=== PATIENT | female | born 1960 | race Caucasian/White ===

== ENCOUNTER → 2016-09-23 | Outpatient (CLI) | payer OTHER ==
[2015-12-18 16:25] VITALS: BP 112/81
[~2016-09-23] MED LIST: AMLO5TAB2 PO; INTE0.3V2 SQ; LEVO125T5 PO; LOSA50TA6 PO; NEBI5TAB2 PO; SIMV10TA3 PO
[2016-09-23 07:51] LABS: ALBUMIN 3.8 g/dL (3.4-5.0); CALCIUM 9.2 mg/dL (8.5-10.1); CREATININE 0.9 mg/dL (0.6-1.0); GFR 64.5; POTASSIUM 4.1 mmol/L (3.5-5.1); TOTAL BILIRUBIN 0.7 mg/dL (0.2-1.0); TOTAL PROTEIN 7.6 g/dL (6.4-8.2)
[2016-09-24 03:15] LABS: HEMOGLOBIN A1C 5.6 % (4.8-5.6)
== END | disposition home or self-care (01) ==
LOC: LAB 07:12
PROVIDERS: ATTEND Family Medicine
DX: I10 Essential (primary) hypertension (principal)
CPT/HCPCS: 36415; 80053; 80061; 83036

== ENCOUNTER → 2016-10-05 | Outpatient (CLI) | payer OTHER ==
[2015-12-18 16:25] VITALS: BP 112/81
--- NOTE | 2016-10-05 12:02 | RAD ---
DATE: 10/05/2016 EXAM: MAMMO COOKIE SCREENING BILATERAL HISTORY: Screening COMPARISON: One year earlier This study was interpreted with the benefit of Computerized Aided Detection (CAD). FINDINGS: Breast Density: SCATTERED The breast parenchyma shows scattered fibroglandular densities. Breast parenchyma level B. There has not been a significant change in the appearance of the breasts compared to the previous exam IMPRESSION: Benign findings BI-RADS CATEGORY: 2 BENIGN FINDING(S) RECOMMENDED FOLLOW-UP: 12M 12 MONTH FOLLOW-UP PQRS compliance statement: Patient information was entered into a reminder system with a target due date 10/05/2017 for the next mammogram. Mammography is a sensitive method for finding small breast cancers, but it does not detect them all and is not a substitute for careful clinical examination. A negative mammogram does not negate a clinically suspicious finding and should not result in delay in biopsying a clinically suspicious abnormality. "Our facility is accredited by the [employer] Mammography [employer]."
== END | disposition home or self-care (01) ==
LOC: MAMMO 10:06
PROVIDERS: ATTEND Family Medicine
DX: Z12.31 Encounter for screening mammogram for malignant neoplasm of breast (principal)
CPT/HCPCS: 77063; G0202; 77067

== ENCOUNTER → 2016-12-01 | Outpatient (CLI) | payer OTHER ==
[2015-12-18 16:25] VITALS: BP 112/81
--- NOTE | 2016-12-01 11:30 | RAD ---
INDICATION: LEFT FOOT PAIN COMPARISON: None. IMPRESSION: Left foot: 3 views obtained without definite acute fracture or dislocation. Relative lucency of the tuft of the first distal phalanx laterally. Could be artifactual in nature but if there is any clinical concern for osteomyelitis a follow-up bone scan or MRI could further evaluate. Plantar calcaneal spur.
== END | disposition home or self-care (01) ==
LOC: DXRAD 11:10
PROVIDERS: ATTEND Nurse Practitioner Family
DX: M77.32 Calcaneal spur, left foot (principal)
CPT/HCPCS: 73630

== ENCOUNTER → 2017-03-08 | Outpatient (CLI) | payer OTHER ==
[2015-12-18 16:25] VITALS: BP 112/81
== END | disposition home or self-care (01) ==
LOC: LAB 09:50
PROVIDERS: ATTEND Family Medicine
DX: E03.9 Hypothyroidism, unspecified (principal)
CPT/HCPCS: 84443

== ENCOUNTER → 2017-04-25 | Outpatient (CLI) | payer OTHER ==
[2015-12-18 16:25] VITALS: BP 112/81
== END | disposition home or self-care (01) ==
LOC: LAB 07:25
PROVIDERS: ATTEND Physician Assistant
DX: R73.9 Hyperglycemia, unspecified (principal)
CPT/HCPCS: 36415; 82947

== ENCOUNTER → 2017-05-05 | Outpatient (CLI) | payer OTHER ==
[2015-12-18 16:25] VITALS: BP 112/81
[2017-05-05 18:38] LABS: ALBUMIN 3.9 g/dL (3.4-5.0); ALBUMIN/GLOBULIN RATIO 1.1 (1.0-1.7); CALCIUM 9.3 mg/dL (8.5-10.1); CREATININE 1.1 mg/dL (0.6-1.0); GFR 51.2; POTASSIUM 3.9 mmol/L (3.5-5.1); TOTAL BILIRUBIN 0.4 mg/dL (0.2-1.0); TOTAL PROTEIN 7.5 g/dL (6.4-8.2)
[2017-05-06 04:13] LABS: HEMOGLOBIN A1C 6.1 % (4.8-5.6)
== END | disposition home or self-care (01) ==
LOC: PMG 15:24
PROVIDERS: ATTEND Physician Assistant
DX: R73.02 Impaired glucose tolerance (oral) (principal)
CPT/HCPCS: 36415; 80053; 83036

== ENCOUNTER → 2017-12-21 | Outpatient (CLI) | payer OTHER ==
[2015-12-18 16:25] VITALS: BP 112/81
[2017-12-21 10:41] LABS: BASO # 0.1 x10^3/uL (0.0-0.2); BASO % 1 % (0-3); EOS # 0.3 x10^3/uL (0.0-0.7); EOS % 5 % (0-3); HEMATOCRIT 39.4 % (36.0-47.0); HEMOGLOBIN 13.2 g/dL (12.0-15.5); LYMPH % 16 % (24-48); MEAN CORPUSCULAR HEMOGLOBIN 28 pg (25-35); MEAN CORPUSCULAR HGB CONC 34 g/dL (31-37); MEAN CORPUSCULAR VOLUME 84 fL (79-100); MONO # 0.5 x10^3/uL (0.0-1.1); MONO % 8 % (0-9); NEUT # 4.2 x10^3uL (1.8-7.7); NEUT % 70 % (31-73); PLATELET COUNT 172 x10^3/uL (140-400)
[2017-12-21 10:49] LABS: BACTERIA,URINE 0 /HPF (0-FEW); BILIRUBIN,URINE NEG (NEG); CLARITY,URINE HAZY; COLOR,URINE YELLOW; GLUCOSE,URINE NEG (NEG); NITRITE,URINE NEG (NEG); RBC,URINE 0 /HPF (0-2); SQUAMOUS EPITHELIAL CELL,UR OCC /LPF; UROBILINOGEN,URINE 0.2 mg/dL (0.2 mg/dL); WBC,URINE RARE /HPF (0-4)
[2017-12-21 11:02] LABS: ALBUMIN 4.1 g/dL (3.4-5.0); ALBUMIN/GLOBULIN RATIO 1.2 (1.0-1.7); CALCIUM 9.5 mg/dL (8.5-10.1); CREATININE 0.9 mg/dL (0.6-1.0); GFR 64.3; POTASSIUM 4.4 mmol/L (3.5-5.1); TOTAL BILIRUBIN 0.6 mg/dL (0.2-1.0); TOTAL PROTEIN 7.5 g/dL (6.4-8.2)
[2017-12-21 14:21] LABS: FREE T4 1.31 ng/dL (0.76-1.46); THYROID STIM HORMONE (TSH) 1.767 uIU/mL (0.358-3.740)
[2017-12-22 03:12] LABS: HEMOGLOBIN A1C 5.7 % (4.8-5.6)
== END | disposition home or self-care (01) ==
LOC: LAB 09:12
PROVIDERS: ATTEND Physician Assistant
DX: I10 Essential (primary) hypertension (principal); E78.5 Hyperlipidemia, unspecified; E78.00 Pure hypercholesterolemia, unspecified; E03.9 Hypothyroidism, unspecified; Z90.49 Acquired absence of other specified parts of digestive tract; Z90.89 Acquired absence of other organs; Z90.710 Acquired absence of both cervix and uterus
CPT/HCPCS: 36415; 80053; 80061; 81001; 82043; 83036; 84439; 84443; 85025; 87086

== ENCOUNTER → 2018-07-13 | Outpatient (CLI) | payer OTHER ==
[2015-12-18 16:25] VITALS: BP 112/81
[~2018-07-13] MED LIST changes: +AMLO5TAB10 PO; -AMLO5TAB2 PO; -LOSA50TA6 PO; +LOSA50TA86 PO
--- NOTE | 2018-07-13 12:57 | RAD ---
EXAM: Abdomen, 2 views. HISTORY: Pain. COMPARISON: 12/17/2015 FINDINGS: Frontal upright and supine views of the abdomen are obtained. There is a small amount of gas and stool within the colon. There are nonspecific air-filled loops of small bowel. There is no abnormally dilated loop of bowel, transition point or free air. There are calcifications overlying the left upper quadrant which are likely vascular in etiology. IMPRESSION: Nonobstructive bowel gas pattern. Electronically signed by: Rica Nettles MD (07/13/2018 12:53 PM) [place] [id number]
[2018-07-13 13:00] LABS: BASO # 0.1 x10^3/uL (0.0-0.2); BASO % 1 % (0-3); EOS # 0.5 x10^3/uL (0.0-0.7); EOS % 5 % (0-3); HEMATOCRIT 37.5 % (36.0-47.0); HEMOGLOBIN 12.8 g/dL (12.0-15.5); LYMPH # 1.4 x10^3/uL (1.0-4.8); LYMPH % 14 % (24-48); MEAN CORPUSCULAR HEMOGLOBIN 29 pg (25-35); MEAN CORPUSCULAR HGB CONC 34 g/dL (31-37); MEAN CORPUSCULAR VOLUME 85 fL (79-100); MONO # 0.7 x10^3/uL (0.0-1.1); MONO % 8 % (0-9); NEUT # 7.2 x10^3uL (1.8-7.7); NEUT % 73 % (31-73); PLATELET COUNT 175 x10^3/uL (140-400); RED CELL DISTRIBUTION WIDTH 14.6 % (11.5-14.5); WHITE BLOOD COUNT 9.8 x10^3/uL (4.0-11.0)
[2018-07-13 13:07] LABS: ALBUMIN/GLOBULIN RATIO 1.1 (1.0-1.7); CALCIUM 9.4 mg/dL (8.5-10.1); GFR 56.7; POTASSIUM 4.2 mmol/L (3.5-5.1); TOTAL BILIRUBIN 0.8 mg/dL (0.2-1.0); TOTAL PROTEIN 7.7 g/dL (6.4-8.2)
[2018-07-13 13:17] LABS: BILIRUBIN,URINE NEG (NEG); CLARITY,URINE HAZY; COLOR,URINE YELLOW; GLUCOSE,URINE NEG (NEG); NITRITE,URINE NEG (NEG); RBC,URINE 0 /HPF (0-2); UROBILINOGEN,URINE 0.2 mg/dL (0.2 mg/dL); WBC,URINE OCC /HPF (0-4)
[2018-07-13 13:18] LABS: BACTERIA,URINE 0 /HPF (0-FEW); SQUAMOUS EPITHELIAL CELL,UR FEW /LPF
[2018-07-13 14:14] LABS: SEDIMENTATION RATE 33 (0-25)
== END | disposition home or self-care (01) ==
LOC: DXRAD 12:18
PROVIDERS: ATTEND Physician Assistant
DX: R10.30 Lower abdominal pain, unspecified (principal)
CPT/HCPCS: 36415; 74021; 80053; 81001; 82150; 83690; 85025; 85651

== ENCOUNTER → 2019-04-09 | Outpatient (CLI) | payer OTHER ==
[2015-12-18 16:25] VITALS: BP 112/81
[~2019-04-09] MED LIST changes: +SIMV10TA15 PO; -SIMV10TA3 PO
--- NOTE | 2019-04-11 17:55 | RAD ---
3d digital tomography Bilateral History: Routine screening Technique: Bilateral 3d digital tomographic views were obtained and reviewed on a workstation. In addition, CAD - computer aided detection was utilized. Comparison: Most recently on 10/05/2016. Findings: Breast Tissue Density B : The breast tissue is composed of mixed fatty and fibroglandular tissue. There are no suspicious masses, microcalcifications or areas of architectural distortion. Impression: No suspicious findings. BI-RADS Category 1: Negative. Normal interval followup. The patient will receive a letter with the results in the mail. A mammogram does not have 100% sensitivity and therefore a negative imaging study should not delay further work up of a suspicious abnormality. "Our facility is accredited by the [employer] Mammography [employer]."
== END | disposition home or self-care (01) ==
LOC: MAMMO 15:01
PROVIDERS: ATTEND Physician Assistant
DX: Z12.31 Encounter for screening mammogram for malignant neoplasm of breast (principal)
CPT/HCPCS: 77063; 77067

== ENCOUNTER → 2019-11-14 | Outpatient (CLI) | payer OTHER ==
[2015-12-18 16:25] VITALS: BP 112/81
[2019-11-14 16:35] LABS: BASO % 1 % (0-3); EOS # 0.2 x10^3/uL (0.0-0.7); EOS % 4 % (0-3); HEMATOCRIT 40.1 % (36.0-47.0); HEMOGLOBIN 13.3 g/dL (12.0-15.5); LYMPH # 1.3 x10^3/uL (1.0-4.8); LYMPH % 22 % (24-48); MEAN CORPUSCULAR HEMOGLOBIN 29 pg (25-35); MEAN CORPUSCULAR HGB CONC 33 g/dL (31-37); MEAN CORPUSCULAR VOLUME 87 fL (79-100); MONO # 0.4 x10^3/uL (0.0-1.1); MONO % 7 % (0-9); NEUT % 66 % (31-73); PLATELET COUNT 161 x10^3/uL (140-400); RED BLOOD COUNT 4.62 x10^6/uL (3.50-5.40); RED CELL DISTRIBUTION WIDTH 14.6 % (11.5-14.5); WHITE BLOOD COUNT 6.1 x10^3/uL (4.0-11.0)
[2019-11-14 16:40] LABS: ALBUMIN 3.9 g/dL (3.4-5.0); ALBUMIN/GLOBULIN RATIO 1.1 (1.0-1.7); CALCIUM 9.3 mg/dL (8.5-10.1); CREATININE 1.2 mg/dL (0.6-1.0); GFR 45.8; POTASSIUM 4.3 mmol/L (3.5-5.1); TOTAL BILIRUBIN 0.4 mg/dL (0.2-1.0); TOTAL PROTEIN 7.5 g/dL (6.4-8.2)
[2019-11-15 14:49] LABS: FREE T4 1.4 ng/dL (0.76-1.46); THYROID STIM HORMONE (TSH) 0.869 uIU/mL (0.358-3.740)
== END ==
LOC: LAB 14:24
PROVIDERS: ATTEND Physician Assistant
DX: Z00.00 Encounter for general adult medical examination without abnormal findings (principal); R73.02 Impaired glucose tolerance (oral); G35 Multiple sclerosis; I10 Essential (primary) hypertension; E78.5 Hyperlipidemia, unspecified
CPT/HCPCS: 36415; 80053; 80061; 83036; 84439; 84443; 85025

== ENCOUNTER → 2020-04-14 | Outpatient (CLI) | payer OTHER ==
[2015-12-18 16:25] VITALS: BP 112/81
[~2020-04-14] MED LIST changes: +AMLO-186 PO; -AMLO5TAB10 PO
--- NOTE | 2020-04-16 16:53 | RAD ---
DATE: 04/14/2020 1:03 PM EXAM: MAMMO COOKIE SCREENING BILATERAL HISTORY: Screening COMPARISON: 04/09/2019 Bilateral CC and MLO views of the breasts were performed. Bilateral breast tomosynthesis was performed in CC and MLO projections. This study was interpreted with the benefit of Computerized Aided Detection (CAD). FINDINGS: Breast Density: SCATTERED The breast parenchyma shows scattered fibroglandular densities. Breast parenchyma level B No suspicious masses, microcalcifications or architectural distortion is present to suggest malignancy in either breast. The visualized axillae are unremarkable. IMPRESSION: No mammographic evidence of malignancy. BI-RADS CATEGORY: 1 NEGATIVE RECOMMENDED FOLLOW-UP: 12M 12 MONTH FOLLOW-UP Annual screening mammography is recommended, unless clinically indicated sooner based on symptoms or change in physical exam. PQRS compliance statement: Patient information was entered into a reminder system with a target due date for the next mammogram. Mammography is a sensitive method for finding small breast cancers, but it does not detect them all and is not a substitute for careful clinical examination. A negative mammogram does not negate a clinically suspicious finding and should not result in delay in biopsying a clinically suspicious abnormality. "Our facility is accredited by the [employer] Mammography [employer]."
== END ==
LOC: MAMMO 12:57
PROVIDERS: ATTEND Physician Assistant
DX: Z12.31 Encounter for screening mammogram for malignant neoplasm of breast (principal)
CPT/HCPCS: 77063; 77067

== ENCOUNTER 2020-04-26 21:44 | Emergency (ER) | payer OTHER ==
[~2020-04-26] VITALS: Ht 165.1 cm; Wt 82.3 kg
[2020-04-26 22:00] VITALS: BP 163/64
--- NOTE | 2020-04-26 22:22 | PHYS DOC ---
Past History Past Medical History: Diverticulitis, High Cholesterol, Hypertension Past Surgical History: Appendectomy, Hysterectomy, Tonsillectomy, Tubal ligation Alcohol Use: Occasionally Drug Use: None General Adult EDM: Chief Complaint: HYPERGLYCEMIA HPI: HPI: Patient is a 59-year-old female coming in for hyperglycemia. Patient states she checked her blood sugar this evening because she felt "off". Complaining of dizziness and jitteriness. Patient states she has been more thirsty recently and urinating more frequently. Patient has a primary care provider and is being treated for hypertension, hypothyroid, dyslipidemia. Patient states that she gets yearly screenings and has not had diabetes diagnosed in the past. Patient denies any fevers, cough, headaches. Patient states she has been under more stress and anxious recently after her committed suicide 1 month ago in her house. Patient denies any suicidal thoughts herself. Review of Systems: Review of Systems: Constitutional: Denies fever or chills Eyes: Denies change in visual acuity HENT: Denies nasal congestion or sore throat Respiratory: Denies cough or shortness of breath Cardiovascular: Denies chest pain or edema GI: Denies abdominal pain, nausea, vomiting, bloody stools or diarrhea : Denies dysuria Musculoskeletal: Denies back pain or joint pain Integument: Denies rash Neurologic: Dizziness without headache, focal weakness or sensory changes Endocrine: Polyuria and polydipsia Lymphatic: Denies swollen glands Psychiatric: Anxious and sad but denies suicidal ideation Allergies: Allergies: Allergies Coded Allergies Type Severity Reaction Last Updated Verified Penicillins Allergy Intermediate rash 12/17/15 Yes Physical Exam: PE: Constitutional: Well developed, well nourished, no acute distress, non-toxic appearance. [] HENT: Normocephalic, atraumatic, bilateral external ears normal, oropharynx mois t, no oral exudates, nose normal. [] Eyes: PERRLA, EOMI, conjunctiva normal, no discharge. [] Neck: Normal range of motion, no tenderness, supple, no stridor. [] Cardiovascular:Heart rate regular rhythm, no murmur [] Lungs & Thorax: Bilateral breath sounds clear to auscultation [] Abdomen: Bowel sounds normal, soft, no tenderness, no masses, no pulsatile masses. [] Skin: Warm, dry, no erythema, no rash. [] Back: No tenderness, no CVA tenderness. [] Extremities: No tenderness, no cyanosis, no clubbing, ROM intact, no edema. [] Neurologic: Alert and oriented X 3, normal motor function, normal sensory function, no focal deficits noted. [] Psychologic: Affect normal, judgement normal, mood normal. [] EKG: EKG: Sinus rhythm, heart rate 57 bpm, short axis deviation, no ST elevation or depression, no ectopy, normal intervals, T wave flattening in multiple leads Radiology/Procedures: Radiology/Procedures: [] Heart Score: Risk Factors: Risk Factors: DM, Current or recent (<one month) smoker, HTN, HLP, family history of CAD, obesity. Risk Scores: Score 0 - 3: 2.5% MACE over next 6 weeks - Discharge Home Score 4 - 6: 20.3% MACE over next 6 weeks - Admit for Clinical Observation Score 7 - 10: 72.7% MACE over next 6 weeks - Early Invasive Strategies Course & Med Decision Making: Course & Med Decision Making New onset of hyperglycemia, will start on Metformin instructed to start a low- dose and follow-up with primary care for further management of diabetes [] Dragon Disclaimer: Dragon Disclaimer: This electronic medical record was generated, in whole or in part, using a voice recognition dictation system. Departure Departure: Impression: Primary Impression: Diabetes mellitus, new onset Disposition: 01 DC HOME SELF CARE/HOMELESS Condition: IMPROVED Referrals: BRAXTON MCDANIEL (PCP) Patient Instructions: Alogliptin; Metformin oral tablets Scripts Metformin Hcl (METFORMIN HCL) 500 Mg Tablet 1 TAB PO DAILY for diabetes for 30 Days, #30 TAB 3 Refills Prov: LINH GRIGSBY MD 04/27/20 LINH GRIGSBY MD Apr 26, 2020 22:22
[2020-04-26 22:42] LABS: BACTERIA,URINE 0 /HPF (0-FEW); BILIRUBIN,URINE NEG (NEG); CLARITY,URINE CLEAR; COLOR,URINE YELLOW; GLUCOSE,URINE >=1000 mg/dL (NEG); NITRITE,URINE NEG (NEG); RBC,URINE 0 /HPF (0-2); UROBILINOGEN,URINE 0.2 mg/dL (0.2 mg/dL); WBC,URINE 0 /HPF (0-4)
--- NOTE | 2020-04-26 22:56 | EKG ---
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
[2020-04-26] MEDS ORDERED: IV NORMAL SALINE 500ML 500 ML IV ONE (23:30)
[2020-04-26 23:38] LABS: CREATININE 1.2 mg/dL (0.6-1.0); GFR 45.8; POTASSIUM 3.3 mmol/L (3.5-5.1)
[2020-04-26 23:39] LABS: BASO % 1 % (0-3); EOS # 0.1 x10^3/uL (0.0-0.7); EOS % 3 % (0-3); HEMATOCRIT 34.1 % (36.0-47.0); HEMOGLOBIN 11.5 g/dL (12.0-15.5); LYMPH # 1.3 x10^3/uL (1.0-4.8); LYMPH % 22 % (24-48); MEAN CORPUSCULAR HEMOGLOBIN 29 pg (25-35); MEAN CORPUSCULAR HGB CONC 34 g/dL (31-37); MEAN CORPUSCULAR VOLUME 85 fL (79-100); MONO # 0.5 x10^3/uL (0.0-1.1); MONO % 9 % (0-9); NEUT # 3.8 x10^3uL (1.8-7.7); NEUT % 66 % (31-73); PLATELET COUNT 113 x10^3/uL (140-400); RED BLOOD COUNT 4.03 x10^6/uL (3.50-5.40); RED CELL DISTRIBUTION WIDTH 14.8 % (11.5-14.5); WHITE BLOOD COUNT 5.8 x10^3/uL (4.0-11.0)
[2020-04-26 23:44] LABS: ALBUMIN 3.2 g/dL (3.4-5.0); TOTAL BILIRUBIN 0.5 mg/dL (0.2-1.0); TOTAL PROTEIN 6.5 g/dL (6.4-8.2)
[2020-04-27] MEDS ORDERED: METF500T16 PO (00:44)
== END 2020-04-27 01:00 | disposition home or self-care (01) ==
LOC: ER 21:44
DX: E11.65 Type 2 diabetes mellitus with hyperglycemia (principal); E78.00 Pure hypercholesterolemia, unspecified; I10 Essential (primary) hypertension; E03.9 Hypothyroidism, unspecified; E78.5 Hyperlipidemia, unspecified; Z88.0 Allergy status to penicillin
CPT/HCPCS: 36415; 80053; 81001; 83690; 84484; 85025; 93005; 96360; 99284; J7040

== ENCOUNTER 2020-08-12 20:50 | Inpatient (IN) | payer BC, OTHER ==
[~2020-08-12] VITALS: Ht 167.6 cm; Wt 70.2 kg
[~2020-08-12 20:50] MED LIST changes: +METF500T16 PO
--- NOTE | 2020-08-12 21:25 | PHYS DOC ---
Past History Past Medical History: Diverticulitis, High Cholesterol, Hypertension, Other Additional Past Medical Histor: MS Past Surgical History: Appendectomy, Hysterectomy, Tonsillectomy, Tubal ligation Alcohol Use: Occasionally Drug Use: None General Adult EDM: Chief Complaint: LOWER EXT PAIN HPI: HPI: Patient is a 60-year-old female coming in for bilateral inner and anterior thigh tenderness and weakness. Patient states she has been going on for the past 2 days and she is unable to get up and down stairs. Has an appointment with her neurologist tomorrow morning. Has a history of MS and in remission but has missed her last 3 months of medication. Patient also has been having diarrhea over the past 3 days which did initially started out dark and tarry looking but is now normal colored. Denies any vomiting. Daughter states she is also had decreased p.o. intake. Patient has a history of newly diagnosed diabetes has been checking her blood sugars but has been unable to get any blood out of her fingersticks for the past 4 to 5 days. Patient has had increased urination but denies any change in color or dysuria. She had a fall five or 6 days ago while she was trying to walk off a step and missed and fell onto both hands, and hit her chest, pelvis. Also complaining of tailbone and low back pain. Denies any paresthesias or calf pain. Review of Systems: Review of Systems: All other systems within normal limits except for as noted in the HPI Allergies: Allergies: Allergies Coded Allergies Type Severity Reaction Last Updated Verified Penicillins Allergy Intermediate rash 12/17/15 Yes Physical Exam: PE: Constitutional: Well developed, well nourished, no acute distress, non-toxic appearance. [] HENT: Normocephalic, atraumatic, bilateral external ears normal, nose normal. [] Eyes: PERRLA, conjunctiva normal, no discharge. [] Neck: No rigidity, supple, no stridor. No C-spine tenderness [] Cardiovascular: Regular rate and rhythm, brisk cap refill, symmetric pulses [] Lungs & Thorax: Non labored symmetric respirations, no tachypnea or respiratory distress [] Abdomen: Soft, nondistended, right upper quadrant tenderness to palpation. Skin: Warm, dry, no erythema, no rash. [] Back: No step-offs or deformities, lumbar tenderness Extremities: No deformities, range of motion grossly intact, no lower extremity edema [] Neurologic: Alert and oriented X 3, no focal deficits noted. Bilateral lower extremity strength 4-10 [] Psychologic: Affect normal, judgement normal, mood normal. No sensory deficits [] Current Patient Data: Vital Signs: Vital Signs Date Time Temp Pulse Resp B/P (MAP) Pulse Ox O2 Delivery O2 Flow Rate FiO2 08/12/20 20:50 97.9 56 18 144/64 (90) 100 Room Air EKG: EKG: Sinus rhythm, heart rate 60 beats minute, left axis deviation, flattening of the T waves, prolonged QTC, no ectopy, no ST elevation or depression. [] Radiology/Procedures: Radiology/Procedures: CT abdomen pelvis with contrast dated 08/12/2020. No comparison available. CLINICAL INDICATION: Pain for fall. Right upper quadrant pain. TECHNIQUE: Contiguous axial imaging the abdomen pelvis performed after the administration of 60 cc Omnipaque 300. One or more of the following individualized dose reduction techniques were utili zed for this examination: 1. Automated exposure control 2. Adjustment of the mA and/or kV according to patient size 3. Use of iterative reconstruction technique. FINDINGS: Limited images of lung bases are clear. Heart size within normal limits. No pleural or pericardial effusion. Liver, spleen, pancreas, adrenal glands, gallbladder unremarkable. There is a calcific stone the gallbladder lumen. No wall thickening. Kidneys are symmetric in size. No stone or hydronephrosis. There is some inflammatory stranding around the descending colon with scattered diverticula throughout. No localized perforation or abscess. The GI tract is otherwise normal in caliber. Appendix is not clearly identified. No inflammatory changes in the right lower quadrant. There is a pelvis show nondistended urinary bladder. The uterus is surgically absent. No free fluid or lymphadenopathy. Bone windows show no acute findings. Multilevel spondylosis. Impression: 1. Acute diverticulitis involving the descending colon. No localized perforation or abscess. 2. Mild fatty infiltration of the liver. 3. Cholelithiasis. [] Heart Score: C/O Chest Pain: N/A Risk Factors: Risk Factors: DM, Current or recent (<one month) smoker, HTN, HLP, family history of CAD, obesity. Risk Scores: Score 0 - 3: 2.5% MACE over next 6 weeks - Discharge Home Score 4 - 6: 20.3% MACE over next 6 weeks - Admit for Clinical Observation Score 7 - 10: 72.7% MACE over next 6 weeks - Early Invasive Strategies Course & Med Decision Making: Course & Med Decision Making Pertinent Labs and Imaging studies reviewed. (See chart for details) Patient admitted to the hospital. Has findings of acute diverticulitis, decreased potassium, prolonged QT interval. Patient states she has not seen Dr. Escobar for her MS medications and has an appointment tomorrow. Discussed with hospitalist that may need neuro consult to get her back on her medications. This likely due to the diverticulitis is causing diarrhea which is in turn causing hypokalemia. [] Dragon Disclaimer: Dragon Disclaimer: This electronic medical record was generated, in whole or in part, using a voice recognition dictation system. Departure Departure: Impression: Primary Impression: Acute diverticulitis Additional Impressions: Hypokalemia Prolonged Q-T interval on ECG Muscle spasms of both lower extremities Disposition: ADMITTED INPT THIS HOSP Admitting Physician: Jamilah Rosales Condition: STABLE Referrals: BRAXTON MCDANIEL (PCP) LINH GRIGSBY MD Aug 12, 2020 21:25
[2020-08-12] MEDS ORDERED: CONTRAST GIVEN. MC PRN (21:30)
[2020-08-12 22:00] LABS: BASO # 0.1 x10^3/uL (0.0-0.2); BASO % 1 % (0-3); EOS # 0.3 x10^3/uL (0.0-0.7); EOS % 2 % (0-3); HEMATOCRIT 40.3 % (36.0-47.0); HEMOGLOBIN 13.4 g/dL (12.0-15.5); LYMPH # 1.6 x10^3/uL (1.0-4.8); LYMPH % 11 % (24-48); MEAN CORPUSCULAR HEMOGLOBIN 30 pg (25-35); MEAN CORPUSCULAR HGB CONC 33 g/dL (31-37); MEAN CORPUSCULAR VOLUME 89 fL (79-100); MONO # 0.7 x10^3/uL (0.0-1.1); MONO % 5 % (0-9); NEUT # 12.3 x10^3uL (1.8-7.7); NEUT % 82 % (31-73); PLATELET COUNT 190 x10^3/uL (140-400); RED BLOOD COUNT 4.53 x10^6/uL (3.50-5.40); RED CELL DISTRIBUTION WIDTH 16.2 % (11.5-14.5)
[2020-08-12] MEDS ORDERED: IV NORMAL SALINE 1,000ML 1,000 ML IV ONE (22:00)
[2020-08-12] MEDS ORDERED: IOHEXOL 300 MG/ML 75 ML VIAL. IV ONE (22:00)
[2020-08-12 22:09] LABS: BACTERIA,URINE 0 /HPF (0-FEW); BILIRUBIN,URINE NEG (NEG); CLARITY,URINE CLEAR; COLOR,URINE YELLOW; GLUCOSE,URINE 500 mg/dL (NEG); NITRITE,URINE NEG (NEG); RBC,URINE OCC /HPF (0-2); SQUAMOUS EPITHELIAL CELL,UR FEW /LPF; WBC,URINE OCC /HPF (0-4)
[2020-08-12 22:24] LABS: ALBUMIN 3.8 g/dL (3.4-5.0); ALBUMIN/GLOBULIN RATIO 0.9 (1.0-1.7); CALCIUM 9.6 mg/dL (8.5-10.1); CREATININE 1.3 mg/dL (0.6-1.0); GFR 41.6; MAGNESIUM 2.8 mg/dL (1.8-2.4); PHOSPHORUS 0.9 mg/dL (2.6-4.7); TOTAL BILIRUBIN 0.9 mg/dL (0.2-1.0); TOTAL PROTEIN 8.1 g/dL (6.4-8.2)
[2020-08-12 22:27] LABS: POTASSIUM 1.5 mmol/L (3.5-5.1)
[2020-08-12] MEDS ORDERED: POTASSIUM CHLORIDE 20MEQ 100 ML IV SCH (22:30)
[2020-08-12] MEDS: POTASSIUM CHLORIDE 10MEQ 100 ML IV SCH (22:48)
--- NOTE | 2020-08-12 22:55 | RAD ---
CT abdomen pelvis with contrast dated 08/12/2020. No comparison available. CLINICAL INDICATION: Pain for fall. Right upper quadrant pain. TECHNIQUE: Contiguous axial imaging the abdomen pelvis performed after the administration of 60 cc Omnipaque 300 . One or more of the following individualized dose reduction techniques were utilized for this examinat ion: 1. Automated exposure control 2. Adjustment of the mA and/or kV according to patient size 3. Use of iterative reconstruction technique. FINDINGS: Limited images of lung bases are clear. Heart size within normal limits. No pleural or pericardial ef fusion. Liver, spleen, pancreas, adrenal glands, gallbladder unremarkable. There is a calcific stone the gall bladder lumen. No wall thickening. Kidneys are symmetric in size. No stone or hydronephrosis. There is some inflammatory stranding around the descending colon with scattered diverticula throughou t. No localized perforation or abscess. The GI tract is otherwise normal in caliber. Appendix is not clearly identified. No inflammatory changes in the right lower quadrant. There is a pelvis show nondistended urinary bladder. The uterus is surgically absent. No free fluid o r lymphadenopathy. Bone windows show no acute findings. Multilevel spondylosis. Impression: 1. Acute diverticulitis involving the descending colon. No localized perforation or abscess. 2. Mild fatty infiltration of the liver. 3. Cholelithiasis. Electronically signed by: Anselmo Chaudhary MD (08/12/2020 10:53 PM) [facility]
[2020-08-12] MEDS ORDERED: POTASSIUM CHLORIDE 20 MEQ TABLET.ER. PO ONE (23:00)
--- NOTE | 2020-08-12 23:17 | EKG ---
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
[2020-08-12] MEDS ORDERED: CIPROFLOXACIN 400MG PREMIX 200 ML IV ONE (23:45)
[2020-08-13] MEDS ORDERED: IV NORMAL SALINE 1,000ML 1,000 ML IV SCH (01:00)
[2020-08-13 02:29] VITALS: BP 154/72
[2020-08-13] MEDS: POTASSIUM CHLORIDE 10MEQ 100 ML IV SCH ×3 (03:48→05:06)
[2020-08-13] MEDS ORDERED: FLU VACC QS 2020-21(6MOS+)/PF 0.5 ML SYRINGE. VAX IM ONE (09:00)
[2020-08-13] MEDS ORDERED: MAGNESIUM SULFATE 1GM 100 ML IV ONE (09:15)
[2020-08-13 09:19] LABS: ALBUMIN 3.2 g/dL (3.4-5.0); ALBUMIN/GLOBULIN RATIO 0.8 (1.0-1.7); CALCIUM 8.9 mg/dL (8.5-10.1); GFR 56.4; TOTAL BILIRUBIN 0.9 mg/dL (0.2-1.0); TOTAL PROTEIN 7.1 g/dL (6.4-8.2)
[2020-08-13 10:07] LABS: POTASSIUM 1.8 mmol/L (3.5-5.1)
--- NOTE | 2020-08-13 10:08 | HP ---
ADMIT DATE: 08/13/2020 ATTENDING PHYSICIAN: Dr. Richey. CHIEF COMPLAINT: Abdominal pain and thigh weakness. HISTORY OF PRESENT ILLNESS: The patient is a 60-year-old female, recently retired. She has a longstanding history of MS. She presented to the ED with anterior thigh weakness. She also had abdominal pain. The workup revealed evidence of acute diverticulitis on the CT scan. She was started on antibiotics. She normally sees Dr. Rambo Ribera for the last 18 years. She missed her last 3 months of medication. She may have a flare of her MS. She is going to wait until to see him as an outpatient. She is admitted here for treatment of acute diverticulitis. The pain is discomfort. It is noticeable. No nausea or vomiting. She has decreased appetite. She was started on intravenous antibiotics. PAST MEDICAL HISTORY: Significant for multiple sclerosis, longstanding for the last 18 years. PAST SURGICAL HISTORY: Includes appendectomy, hysterectomy, tonsillectomy, and tubal ligation. Medical issues include high cholesterol and hypertension. CURRENT MEDICINES: Reviewed. She was taking amlodipine, Betaseron daily, Synthroid, losartan, metformin, Bystolic, and Zocor. ALLERGIES: SHE HAS ALLERGIES TO PENICILLIN. SOCIAL HISTORY: She is a nonsmoker, nondrinker. FAMILY HISTORY: Father has . She was not aware of his history. Mom is still alive at age 88. 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 REVIEW OF SYSTEMS: Significant for the localized pain. She has been followed up by the neurologist, the MS that has been quiescent. No COVID exposure. All other systems were reviewed and turned to be negative. PHYSICAL EXAMINATION: GENERAL: When I saw her, this is a pleasant, middle-aged female. INITIAL VITAL SIGNS: Showed blood pressure 133/57 mmHg, pulse is 61 and regular, temperature 98.3 degrees Fahrenheit, oxygen saturation 97% on room air. HEENT: Head is without trauma. Pupils are reactive. Sclerae nonicteric. Oropharynx is clear. NECK: Supple, no bruits identified. LUNGS: Otherwise clear. CARDIOVASCULAR: Showed regular heart tones. No gallops. ABDOMEN: Soft. Minimal guarding. Bowel sounds are hypoactive. No masses palpated. EXTREMITIES: Without edema. NEUROLOGIC: Focally intact. Speech is fluent. SKIN: Warm and dry. PERTINENT IMAGING STUDIES: The CT of the abdomen and pelvis showed acute diverticulitis involving the descending colon. No localized perforation or abscess. Fatty infiltration of the liver, some cholelithiasis without obstruction. LABORATORY STUDIES: Hemoglobin is 13.4 g/dL with white count of 15,000. Potassium was diminished at 1.5 mEq per liter, I am not sure how accurate that is. Sodium 143. Nonfasting blood sugar 307. Creatinine is 1.3. ASSESSMENT: 1. A 60-year-old female with acute diverticulitis. 2. Questionable hypokalemia. 3. Acute diverticulitis. 4. Multiple sclerosis. 5. Type 2 diabetes. PLAN: 1. Admit to the inpatient unit. 2. Potassium and magnesium replacement. I see she is not on a diuretic. 3. Serial chemistries. 4. Diet as tolerated. 5. She will wait to see her neurologist as an outpatient for management of her MS at this time. VICKY RICHEY MD DR: DEVIN/jailyn JOB#: [id number] / [id number] BRAXTON Jalloh
[2020-08-13 10:38] VITALS: BP 141/82
[2020-08-13] MEDS: POTASSIUM CHLORIDE 20 MEQ TABLET.ER. PO SCH ×2 (10:57→20:11)
[2020-08-13] MEDS: ACETAMINOPHEN 325 MG TABLET PO PRN ×2 (11:35→20:11)
[2020-08-13 15:42] VITALS: BP 146/70
[2020-08-13] MEDS ORDERED: TRAZ-125 PO (17:04)
[2020-08-13] MEDS ORDERED: DAPA10TA PO (17:04)
[2020-08-13] MEDS ORDERED: METF500T16 PO (17:04)
[2020-08-13] MEDS ORDERED: CITA10TA8 PO (17:05)
[2020-08-13] MEDS ORDERED: METO50TA29 PO (17:05)
[2020-08-13] MEDS ORDERED: OMEP20TA63 PO (17:05)
[2020-08-13 19:33] VITALS: BP 153/52
[2020-08-14] MEDS: ACETAMINOPHEN 325 MG TABLET PO PRN ×3 (04:44→20:42)
[2020-08-14 05:08] VITALS: BP 166/71
[2020-08-14 07:07] LABS: BASO # 0.1 x10^3/uL (0.0-0.2); BASO % 1 % (0-3); EOS # 0.3 x10^3/uL (0.0-0.7); EOS % 2 % (0-3); HEMATOCRIT 35.8 % (36.0-47.0); LYMPH % 9 % (24-48); MEAN CORPUSCULAR HEMOGLOBIN 30 pg (25-35); MEAN CORPUSCULAR HGB CONC 34 g/dL (31-37); MEAN CORPUSCULAR VOLUME 89 fL (79-100); MONO # 0.5 x10^3/uL (0.0-1.1); MONO % 5 % (0-9); NEUT # 8.5 x10^3uL (1.8-7.7); NEUT % 82 % (31-73); PLATELET COUNT 142 x10^3/uL (140-400); RED BLOOD COUNT 4.03 x10^6/uL (3.50-5.40); RED CELL DISTRIBUTION WIDTH 16.2 % (11.5-14.5); WHITE BLOOD COUNT 10.3 x10^3/uL (4.0-11.0)
[2020-08-14 07:25] LABS: ALBUMIN/GLOBULIN RATIO 0.9 (1.0-1.7); CALCIUM 8.7 mg/dL (8.5-10.1); CREATININE 0.9 mg/dL (0.6-1.0); GFR 63.7; TOTAL BILIRUBIN 0.7 mg/dL (0.2-1.0); TOTAL PROTEIN 6.5 g/dL (6.4-8.2)
[2020-08-14 07:37] LABS: POTASSIUM 1.7 mmol/L (3.5-5.1)
[2020-08-14] MEDS ORDERED: MAGNESIUM SULFATE 1GM 100 ML IV ONE (08:00)
[2020-08-14] MEDS: POTASSIUM CHLORIDE 20 MEQ TABLET.ER. PO SCH ×4 (08:16→20:42)
--- NOTE | 2020-08-14 10:15 | PN ---
DATE: 08/14/2020 ATTENDING PHYSICIAN: Dr. Richey. SUBJECTIVE: The patient is eating a little bit more, nausea has resolved. Abdominal pain has resolved. She is having some fasciculations and tremors of her right hand. She tells me she has not had Betaseron for a while, she was getting injections every other day. OBJECTIVE FINDINGS: VITAL SIGNS: Blood pressure this morning is 166/70, pulse 55 and regular, temperature 97.7, oxygen saturation 99% on room air. HEENT: Head is without trauma. Pupils are reactive. Sclerae nonicteric. Oropharynx clear. NECK: Supple. LUNGS: Clear. CARDIOVASCULAR: Showed regular heart tones. ABDOMEN: Soft. There is no guarding or rebound tenderness. There are good bowel sounds. EXTREMITIES: Without edema. NEUROLOGIC: Focally intact. Slight tremor of the right hand. LABORATORY DATA: Hemoglobin is 12.0 grams, white count down to 10,300. Chemistry panel: Potassium is still low at 1.7 mEq/L, sodium 148 mEq, nonfasting blood sugar 242. Creatinine is 0.9 mg percent. ASSESSMENT: 1. A 60-year-old female with acute diverticulitis, improved. 2. Idiopathic hypokalemia. She is not on a diuretic. She has been refractory due to hypomagnesemia. 3. Multiple sclerosis, longstanding. 4. Type 2 diabetes. PLAN: 1. Continue antibiotics as ordered. 2. Potassium and magnesium replacement. 3. Serial chemistries. 4. Advance diet as tolerated. 5. Follow up chemistries in the morning. VICKY RICHEY MD DR: DEVIN/jailyn JOB#: [id number] / [id number]
[2020-08-14 11:15] VITALS: BP 153/72
[2020-08-14 15:30] VITALS: BP 150/72
[2020-08-14 20:12] VITALS: BP 159/70
[2020-08-15 05:33] VITALS: BP 157/75
[2020-08-15 06:15] LABS: CALCIUM 8.4 mg/dL (8.5-10.1); CREATININE 0.9 mg/dL (0.6-1.0); GFR 63.7
[2020-08-15 06:16] LABS: POTASSIUM 2.1 mmol/L (3.5-5.1)
[2020-08-15] MEDS: metFORMIN 500 MG TABLET PO SCH ×2 (07:40→17:01)
[2020-08-15] MEDS ORDERED: MAGNESIUM SULFATE 1GM 100 ML IV ONE (08:00)
[2020-08-15] MEDS: POTASSIUM CHLORIDE 20 MEQ TABLET.ER. PO SCH ×3 (08:33→20:11)
[2020-08-15 10:27] VITALS: BP 162/81
[2020-08-15 15:35] VITALS: BP 153/75
--- NOTE | 2020-08-15 16:47 | PN ---
DATE: 08/15/2020 ATTENDING PHYSICIAN: Dr. Richey. SUBJECTIVE: Very alert and ate all of her breakfast and no further nausea or abdominal pain. She ambulates well with very minimal assistance to the bathroom. She already has a walker at home. OBJECTIVE FINDINGS: VITAL SIGNS: Blood pressure today is 162/81, pulse of 67 and regular, temperature 98.9 degrees Fahrenheit, oxygen saturation 97% on room air. HEENT: Head is without trauma. Pupils are reactive. Sclerae nonicteric. Oropharynx is clear. NECK: Supple, no bruits identified. LUNGS: Clear. CARDIOVASCULAR: Showed regular heart tones. No gallops. ABDOMEN: Soft, no guarding. EXTREMITIES: Without edema. NEUROLOGIC: Generalized weakness, but no focal deficit. LABORATORY STUDIES: Potassium is up to 2.1 mEq, creatinine is 0.9 mg/dL, nonfasting blood sugar 230. ASSESSMENT: 1. A 60-year-old female with acute diverticulitis, improving. 2. Asymptomatic hypokalemia, questionable etiology, being replaced. 3. Type 2 diabetes. 4. Underlying multiple sclerosis. PLAN: 1. Continue potassium and magnesium replacement. 2. Serial chemistries. 3. We do not have Betaseron on formulary. Her daughter will bring dose for her to be given here while she is in the hospital. 4. Advance diet. 5. Continue antibiotics another day. VICKY RICHEY MD DR: DEVIN/jailyn JOB#: [id number] / [id number]
[2020-08-15 19:31] VITALS: BP 152/75
[2020-08-15 23:43] VITALS: BP 128/62
[2020-08-16 05:23] VITALS: BP 139/69
[2020-08-16 06:42] LABS: CALCIUM 8.5 mg/dL (8.5-10.1); CREATININE 0.9 mg/dL (0.6-1.0); GFR 63.7
[2020-08-16 06:58] LABS: POTASSIUM 2.5 mmol/L (3.5-5.1)
[2020-08-16] MEDS ORDERED: MAGNESIUM SULFATE 1GM 100 ML IV ONE (07:45)
[2020-08-16] MEDS: metFORMIN 500 MG TABLET PO SCH ×2 (08:17→17:00)
[2020-08-16] MEDS: POTASSIUM CHLORIDE 20 MEQ TABLET.ER. PO SCH ×3 (08:17→20:08)
[2020-08-16 11:08] VITALS: BP 106/70
--- NOTE | 2020-08-16 12:14 | PN ---
DATE: 08/16/2020 ATTENDING PHYSICIAN: Dr. Richey. SUBJECTIVE: Doing well. No new complaints. She is ambulating without any assistance. She went to the shower and feels better. She is eating solid foods. OBJECTIVE FINDINGS: VITAL SIGNS: Blood pressure is 139/69, pulse 56 and regular, temperature 98.6 degrees Fahrenheit. Room air saturation 99% on room air. HEENT: Head is without trauma. Pupils are reactive. Sclerae are nonicteric. Oropharynx clear. NECK: Supple, no bruits. LUNGS: Clear. CARDIOVASCULAR: Showed regular heart tones. No gallops, no murmurs. No skipped beats. ABDOMEN: Bowel sounds were normal. No guarding or rebound tenderness. EXTREMITIES: Without edema. NEUROLOGIC FINDINGS: Focally intact. Speech is fluent. PERTINENT LABORATORY STUDIES: The potassium is up to 2.5 mEq per liter. Creatinine remains same at 0.9, nonfasting blood sugar better 143. ASSESSMENT: 1. A 60-year-old female with acute diverticulitis, improving. 2. Asymptomatic hypokalemia with refractory hypokalemia due to hypomagnesemia, currently being replaced. 3. Type 2 diabetes with better controlled sugar. 4. Underlying multiple sclerosis that has been in remission. PLAN: 1. Continue oral potassium and IV magnesium replacement. 2. Serial chemistries. 3. Family is getting a hold of a dose of Betaseron for her. 4. Diet has been advanced. 5. Follow up chemistry. She can go home and the potassium is close to approximately 3.0 mEq with plans for followup as an outpatient. VICKY RICHEY MD DR: DEVIN/jailyn JOB#: [id number] / [id number]
[2020-08-16 16:13] VITALS: BP 138/79
[2020-08-16 20:08] VITALS: BP 148/69
[2020-08-16] MEDS ORDERED: SIMVASTATIN 10 MG TABLET PO SCH (21:00)
[2020-08-16 23:45] VITALS: BP 146/71
[2020-08-17 05:26] VITALS: BP 153/71
[2020-08-17] MEDS ORDERED: LEVOTHYROXINE 125 MCG TABLET PO SCH (06:00)
[2020-08-17] MEDS ORDERED: PANTOPRAZOLE 40 MG TABLET. PO SCH (07:30)
[2020-08-17] MEDS: metFORMIN 500 MG TABLET PO SCH (08:35)
[2020-08-17] MEDS: POTASSIUM CHLORIDE 20 MEQ TABLET.ER. PO SCH (08:36)
[2020-08-17 08:37] VITALS: BP 153/71
[2020-08-17 08:51] LABS: CALCIUM 8.7 mg/dL (8.5-10.1); CREATININE 0.9 mg/dL (0.6-1.0); GFR 63.7
[2020-08-17] MEDS ORDERED: amLODIPine BESYLATE 10 MG TABLET PO SCH (09:00)
[2020-08-17] MEDS ORDERED: METOPROLOL SUCC 24HR ER 50 MG TAB.ER.24H. PO SCH (09:00)
[2020-08-17] MEDS ORDERED: CITALOPRAM 10 MG TABLET. PO SCH (09:00)
[2020-08-17] MEDS ORDERED: LOSARTAN 50 MG TABLET. PO SCH (09:00)
--- NOTE | 2020-08-17 16:20 | DS ---
DATE OF DISCHARGE: 08/17/2020 ATTENDING PHYSICIAN: Dr. Richey. FINAL DISCHARGE DIAGNOSES: 1. Mild diverticulitis, resolved. 2. Asymptomatic hypokalemia, replaced. 3. Refractory hypokalemia, probably due to hypomagnesemia. 4. Type 2 diabetes. 5. Underlying multiple sclerosis, longstanding. 6. Essential hypertension. HISTORY OF PRESENT ILLNESS: The patient is a pleasant 60-year-old female who was admitted with vague symptoms of abdominal pain, weakness and a low potassium level. Initial potassium 1.7 mEq. She was not on any replacement. She has some mild muscle cramping, but it was related more to the MS. She has not had her Betaseron for a while. She was admitted then for further treatment of these conditions. PHYSICAL EXAMINATION: Please see the dictated note. PERTINENT LABORATORY AND X-RAY STUDIES: The initial CT of the abdomen and pelvis showed diverticulitis involving the descending colon. No perforation, fatty infiltration of the liver, cholelithiasis without cholecystitis. Her potassium on admission was 1.7 mEq per liter; with subsequent replacement, came to 2.1, 2.5 and prior to discharge, up to 3.0 mEq per liter. She was totally asymptomatic without any rhythm issues. Her hemoglobin was 13.4 grams. White count 15,000; repeated, it was down to 10,300. Creatinine was 0.9 mg percent. COURSE IN THE HOSPITAL: The patient was admitted. She was given several doses of Cipro and Flagyl with marked improvement. She did not require any further antibiotics. Abdominal symptoms resolved and diet was advanced. She was able to tolerate solid foods. Potassium was administered orally along with intravenous magnesium sulfate for refractory hypokalemia due to hypomagnesemia. It came up nicely. We never did find the source of her potassium losses. She is not on a diuretic. Sugars were controlled. Farxiga and metformin were restarted. By the fifth hospital day, she was doing much better and vital signs were stable. She had no further abdominal symptoms. Her blood pressure was managed 153/70, pulse was regular. She was afebrile, oxygen saturation 99% on room air. She was ready for discharge. At this time, I did not feel any antibiotics were necessary. She was sent home on K-Dur 20 mEq 2 daily along with continuation of her amlodipine, Celexa, Farxiga, Synthroid, losartan, metformin, metoprolol, Prilosec, Zocor and trazodone doses unchanged. I suggested a followup visit with Eyal Lomas in 2 weeks and recheck chemistries at that time, no restrictions on diet. She was discharged then from our hospital in stable condition with explicit instructions and followup care. TOTAL DISCHARGE TIME SPENT: 39 minutes. VICKY RICHEY MD DR: DEVIN/jailyn JOB#: [id number] / [id number] EYAL Jalloh
== END 2020-08-17 10:32 | disposition home or self-care (01) | DRG 392 ==
LOC: ER 20:50 → 1 SOUTH 08-13 00:35
PROVIDERS: ADMIT Internal Medicine; ATTEND Internal Medicine
DX: K57.92 Diverticulitis of intestine, part unspecified, without perforation or abscess without bleeding (principal); E87.6 Hypokalemia; E11.9 Type 2 diabetes mellitus without complications; E78.00 Pure hypercholesterolemia, unspecified; E78.5 Hyperlipidemia, unspecified; E83.42 Hypomagnesemia; G35 Multiple sclerosis; I10 Essential (primary) hypertension; K76.0 Fatty (change of) liver, not elsewhere classified; K80.20 Calculus of gallbladder without cholecystitis without obstruction; Z82.49 Family history of ischemic heart disease and other diseases of the circulatory system; Z87.891 Personal history of nicotine dependence; Z90.49 Acquired absence of other specified parts of digestive tract; Z90.710 Acquired absence of both cervix and uterus; Z88.0 Allergy status to penicillin; Z98.51 Tubal ligation status; R94.31 Abnormal electrocardiogram [ECG] [EKG]
CPT/HCPCS: 36415; 74177; 80048; 80053; 81001; 82947; 83605; 83735; 84100; 85025; 93005; 96361; 96365; J0744; J3475; J3480; J3490; Q9967; 97116; 97535; 99285-25; J7030

== ENCOUNTER → 2021-05-13 | Outpatient (CLI) | payer BC ==
[~2021-05-13] MED LIST changes: +CITA10TA8 PO; +DAPA10TA PO; +METO50TA29 PO; +OMEP20TA63 PO; +TRAZ-125 PO
--- NOTE | 2021-05-13 16:29 | RAD ---
EXAM: Bilateral digital screening mammogram with tomosynthesis. HISTORY: 60-year-old female presents for screening mammography. TECHNIQUE: Full-field digital craniocaudal and mediolateral oblique 2D and 3D tomosynthesis images of both breasts are obtained for evaluation. Computer aided detection was applied. COMPARISON: 04/14/2020 and 04/09/2019 BREAST PARENCHYMAL DENSITY: Level B - Scattered fibroglandular densities. FINDINGS: There is no new suspicious mass, microcalcification or region of architectural distortion. IMPRESSION: BI-RADS Category 2: Benign finding(s). RECOMMENDATION: Annual mammography is recommended. If your mammogram demonstrates that you have dense breast tissue, which could hide abnormalities, and if you have other risk factors for breast cancer that have been identified, you might benefit from s upplemental screening tests that may be suggested by your ordering physician. Dense breast tissue, i n and of itself, is a relatively common condition. This information is not provided to cause undue c oncern, but rather to raise your awareness and to promote discussion with your physician regarding th e presence of other risk factors, in addition to dense breast tissue. A report of your mammography re sults will be sent to you and your physician. You should contact your physician if you have any ques tions or concerns regarding this report. Mammography is a sensitive method for finding small breast cancers, but it does not detect them all a nd is not a substitute for careful clinical examination. A negative mammogram does not negate a clin ically suspicious finding and should not result in delay in biopsying a clinically suspicious abnorma lity. PQRS compliance statement - Patient information was entered into a reminder system with a target due date for the next mammogram. "Our facility is accredited by the [employer] Mammography [employer]." Electronically signed by: Rica Nettles MD (05/13/2021 4:27 PM) [id number]
== END ==
LOC: MAMMO 14:14
PROVIDERS: ATTEND Physician Assistant
DX: Z12.31 Encounter for screening mammogram for malignant neoplasm of breast (principal)
CPT/HCPCS: 77063; 77067

== ENCOUNTER → 2021-06-03 | Outpatient (CLI) | payer BC ==
--- NOTE | 2021-06-03 17:11 | RAD ---
XR CERVICAL SPINE 4-5V History: Reason: NECK PAIN X 8 WEEKS NO KNOWN INJURY / Spl. Instructions: / History: Technique: 5 views cervical spine. Comparison: None. Findings: Straightening of the cervical spine. Degraded evaluation of the lower cervical spine due to overlying structures on lateral and swimmer's views. No acute fracture. Moderate degenerative disc changes mos t prominent C4-C5 and C5-C6. Prevertebral soft tissues are unremarkable. Facet arthropathy. Normal al ignment C1 on C2. Impression: 1. Moderate cervical spondylosis. Electronically signed by: Andrew aHy DO (06/03/2021 5:09 PM) [id number]
== END ==
LOC: RAD 10:22
PROVIDERS: ATTEND Physician Assistant
DX: M47.812 Spondylosis without myelopathy or radiculopathy, cervical region (principal); M50.321 Other cervical disc degeneration at C4-C5 level; M50.322 Other cervical disc degeneration at C5-C6 level; M79.2 Neuralgia and neuritis, unspecified
CPT/HCPCS: 72050

== ENCOUNTER → 2021-06-23 | Day surgery (SDC) | payer BC ==
[~2021-06-23] MED LIST changes: +ESCITALOPRAM OX10 MG PO; +IPRATRPIUM/ALBUTEROL 0.5/2.5MG 3 ML NEBU. NEB PRN; +IV RINGERS SOLUTION,LACTATED 1,000 ML IV SCH; +LIDOCAINE 2% PF 5 ML VIAL. ONE; +MIDAZOLAM HCL PF 2 MG/2 ML VIAL. IV ONE; +OMEP40CA7 PO; +PROPOFOL 10,000 MCG/ML (20ML) VIAL IV ONE; +potassium
[2021-06-23 13:22] VITALS: BP 125/77
== END | disposition home or self-care (01) ==
LOC: SURG 10:24
PROVIDERS: ATTEND Internal Medicine Gastroenterology
DX: Z12.11 Encounter for screening for malignant neoplasm of colon (principal); K57.30 Diverticulosis of large intestine without perforation or abscess without bleeding; I10 Essential (primary) hypertension; K21.9 Gastro-esophageal reflux disease without esophagitis; E78.5 Hyperlipidemia, unspecified; E11.9 Type 2 diabetes mellitus without complications; F41.9 Anxiety disorder, unspecified; F32.9 Major depressive disorder, single episode, unspecified; Z88.0 Allergy status to penicillin; Z90.710 Acquired absence of both cervix and uterus; Z72.89 Other problems related to lifestyle
CPT/HCPCS: 45378; 82947; J2001; J2704; J7120; G0105